=== PATIENT | female | born 1985 | race Caucasian/White ===

== ENCOUNTER 2017-06-14 10:51 | Emergency (ER) | payer MEDICAID ==
[~2017-06-14] VITALS: Ht 157.5 cm; Wt 68.0 kg
[2017-06-14] MEDS ORDERED: IBUPROFEN 600MG TABLET PO ONE (13:15)
[2017-06-14 13:21] VITALS: BP 112/72
== END 2017-06-14 14:42 | disposition home or self-care (01) ==
LOC: ER 11:20
DX: S16.1XXA Strain of muscle, fascia and tendon at neck level, initial encounter (principal); M54.6 Pain in thoracic spine; V89.2XXA Person injured in unspecified motor-vehicle accident, traffic, initial encounter; Y93.89 Activity, other specified; Y92.410 Unspecified street and highway as the place of occurrence of the external cause; Y99.8 Other external cause status
CPT/HCPCS: 72040; 72070; 99284

== ENCOUNTER 2019-03-30 05:04 | Emergency (ER) | payer MEDICAID, OTHER ==
[~2019-03-30] VITALS: Ht 157.5 cm; Wt 87.0 kg
[2019-03-30] MEDS ORDERED: LIDOCAINE HCL/PF 1% 10 MG/ML 5ML VIAL IJ ONE (06:45)
[2019-03-30] MEDS ORDERED: IBUPROFEN 600MG TABLET PO ONE ×2 (06:45→08:45)
[2019-03-30] MEDS ORDERED: TETANUS, DIPHTHERIA, PERTUSSIS VAC/PF 0.5ML (>7YR OLD) IM ONE (06:45)
[2019-03-30] MEDS ORDERED: HYDROCODONE/ACETAMINOPHEN 5/325MG TABLET PO ONE (06:45)
[2019-03-30] MEDS ORDERED: BACITRACIN ZINC OINT UDPKT TOP ONE (06:45)
[2019-03-30 08:47] VITALS: BP 118/74
== END 2019-03-30 09:15 | disposition home or self-care (01) ==
LOC: ER 05:04
DX: S71.151A Open bite, right thigh, initial encounter (principal); W54.0XXA Bitten by dog, initial encounter; S70.311A Abrasion, right thigh, initial encounter; S91.052A Open bite, left ankle, initial encounter; S91.051A Open bite, right ankle, initial encounter; Y93.89 Activity, other specified; Y92.89 Other specified places as the place of occurrence of the external cause; Y99.8 Other external cause status
CPT/HCPCS: 12002; 81025; 90471; 90715; 99284; J3490; Z7610

== ENCOUNTER 2019-04-01 13:42 | Emergency (ER) | payer OTHER | END 2019-04-01 15:03 | disposition left against medical advice (07) | LOC: ER 13:42 | DX: Z53.21 Procedure and treatment not carried out due to patient leaving prior to being seen by health care provider (principal) ==

== ENCOUNTER 2019-04-04 10:14 | Emergency (ER) | payer OTHER ==
[~2019-04-04] VITALS: Ht 157.5 cm; Wt 86.0 kg
[2019-04-04] MEDS ORDERED: KETOROLAC 60MG/2ML VIAL IM ONE (11:00)
[2019-04-04 11:20] VITALS: BP 128/56
== END 2019-04-04 11:23 | disposition home or self-care (01) ==
LOC: ER 10:14
DX: S81.852D Open bite, left lower leg, subsequent encounter (principal); S81.851D Open bite, right lower leg, subsequent encounter; Z98.890 Other specified postprocedural states; W54.0XXD Bitten by dog, subsequent encounter
CPT/HCPCS: 96372; 99283; J1885; Z7610

== ENCOUNTER 2020-02-21 07:44 | Emergency (ER) | payer OTHER ==
[~2020-02-21] VITALS: Ht 157.5 cm; Wt 79.0 kg
[2020-02-21] MEDS ORDERED: LIDOCAINE HCL 1% 20ML VIAL (Pyxis) INJ INFIL ONE (08:15)
[2020-02-21] MEDS ORDERED: METRONIDAZOLE 500MG TABLET PO ONE (08:15)
[2020-02-21] MEDS ORDERED: CEFTRIAXONE SODIUM 250 MG/VIAL IM ONE (08:15)
[2020-02-21 08:48] VITALS: BP 123/81
[2020-02-21] MEDS ORDERED: AZITHROMYCIN 500 MG TABLET PO SCH (09:00)
[2020-02-21 09:43] LABS: CLARITY URINE TURBID (CLEAR); COLOR URINE YELLOW (YELLOW); KETONES URINE NEGATIVE (NEGATIVE); LEUKOCYTE ESTERASE URINE 3+ (NEGATIVE); NITRITE URINE NEGATIVE (NEGATIVE); OCCULT BLOOD URINE 1+ (NEGATIVE); PROTEIN URINE 1+ (NEGATIVE); SPECIFIC GRAVITY URINE 1.027 (1.005-1.030); UROBILINOGEN URINE 0.2 E.U./dL (0.2-1.0)
[2020-02-23 04:16] LABS: NEISSERIA GONORRHOEAE NAA Negative (Negative)
== END 2020-02-21 10:40 | disposition home or self-care (01) ==
LOC: ER 07:44
DX: Z20.2 Contact with and (suspected) exposure to infections with a predominantly sexual mode of transmission (principal); N39.0 Urinary tract infection, site not specified
CPT/HCPCS: 81003; 81025; 87077; 87086; 87491; 87591; 96372; 99283; J0696; J3490

== ENCOUNTER 2020-04-06 05:54 | Emergency (ER) | payer OTHER ==
[~2020-04-06] VITALS: Ht 157.5 cm; Wt 80.0 kg
[2020-04-06] MEDS ORDERED: AZITHROMYCIN 500 MG TABLET PO ONE (06:45)
[2020-04-06] MEDS ORDERED: CEFTRIAXONE SODIUM 250 MG/VIAL IM ONE (06:45)
[2020-04-06 07:11] VITALS: BP 126/80
== END 2020-04-06 07:11 | disposition home or self-care (01) ==
LOC: ER 06:03
DX: A64 Unspecified sexually transmitted disease (principal); Z98.890 Other specified postprocedural states
CPT/HCPCS: 81025; 96372; 99283; J0696

== ENCOUNTER 2020-08-08 02:01 | Emergency (ER) | payer OTHER ==
[~2020-08-08] VITALS: Ht 157.5 cm; Wt 68.0 kg
[2020-08-08 02:47] VITALS: BP 133/83
[2020-08-08] MEDS ORDERED: CEFTRIAXONE SODIUM 500 MG/VIAL IM ONE (03:30)
[2020-08-08] MEDS ORDERED: AZITHROMYCIN 500 MG TABLET PO ONE (03:30)
[2020-08-08 03:43] LABS: CLARITY URINE CLEAR (CLEAR); COLOR URINE YELLOW (YELLOW); KETONES URINE NEGATIVE (NEGATIVE); LEUKOCYTE ESTERASE URINE 2+ (NEGATIVE); NITRITE URINE NEGATIVE (NEGATIVE); OCCULT BLOOD URINE NEGATIVE (NEGATIVE); PH URINE 5.5 (4.5-8.0); PROTEIN URINE NEGATIVE (NEGATIVE); SPECIFIC GRAVITY URINE 1.014 (1.005-1.030); UROBILINOGEN URINE 0.2 E.U./dL (0.2-1.0)
[2020-08-08] MEDS ORDERED: METR-167 MT (04:36)
[2020-08-08] MEDS ORDERED: DIF15 MT (04:36)
[2020-08-11 04:10] LABS: NEISSERIA GONORRHOEAE NAA Negative (Negative)
== END 2020-08-08 04:47 | disposition home or self-care (01) ==
LOC: ER 02:01
DX: A64 Unspecified sexually transmitted disease (principal); N76.0 Acute vaginitis
CPT/HCPCS: 81003; 81025; 87210; 87491; 87591; 96372; 99283; J0696; Z7610

== ENCOUNTER 2020-09-18 03:11 | Emergency (ER) | payer OTHER ==
[~2020-09-18] VITALS: Ht 157.5 cm; Wt 73.0 kg
[~2020-09-18 03:11] MED LIST: DIF15 MT; METR-167 MT
[2020-09-18] MEDS ORDERED: PERM60CR4 TP (04:57)
[2020-09-18 05:26] VITALS: BP 132/75
== END 2020-09-18 05:28 | disposition home or self-care (01) ==
LOC: ER 03:31
DX: B86 Scabies (principal)
CPT/HCPCS: 99282

== ENCOUNTER 2020-10-01 22:21 | Emergency (ER) | payer OTHER ==
[~2020-10-01] VITALS: Ht 157.5 cm; Wt 71.0 kg
[~2020-10-01 22:21] MED LIST changes: +PERM60CR4 TP
[2020-10-01 22:40] VITALS: BP 151/94
[2020-10-01] MEDS ORDERED: ACETAMINOPHEN 325MG TABLET PO STA (23:11)
[2020-10-02 00:09] LABS: CHLORIDE 104 mEq/L (98-107)
[2020-10-02 00:16] LABS: BASOPHILS % 0.4 % (0.0-2.0); EOSINOPHILS % 0.6 % (0.0-5.0); HEMATOCRIT. 35.9 % (36.0-48.0); HEMOGLOBIN. 11.8 g/dL (12.0-16.0); LYMPHOCYTES % 14.8 % (20.0-50.0); MEAN CORPUSCULAR HEMOGLOBIN 27.4 pg (28.0-32.0); MEAN CORPUSCULAR VOLUME 83.1 fL (81.0-99.0); MEAN PLATELET VOLUME 7.4 fl (7.4-10.4); MONOCYTES % 5.7 % (2.0-8.0); NEUTROPHILS % 78.5 % (40.0-76.0); PLATELET 430 x1000/uL (130-400); RED BLOOD CELL COUNT 4.32 mill/uL (4.2-5.4); RED CELL DISTRIBUTION WIDTH 17.9 % (11.6-14.6)
[2020-10-02 00:21] LABS: CLARITY URINE TURBID (CLEAR); COLOR URINE YELLOW (YELLOW); KETONES URINE NEGATIVE (NEGATIVE); LEUKOCYTE ESTERASE URINE 1+ (NEGATIVE); NITRITE URINE NEGATIVE (NEGATIVE); OCCULT BLOOD URINE NEGATIVE (NEGATIVE); PROTEIN URINE NEGATIVE (NEGATIVE); SPECIFIC GRAVITY URINE 1.016 (1.005-1.030); UROBILINOGEN URINE 0.2 E.U./dL (0.2-1.0)
[2020-10-02 00:31] LABS: METHADONE URINE SCREEN NEGATIVE (NEGATIVE); PHENCYCLIDINE URINE SCREEN NEGATIVE (NEGATIVE)
[2020-10-02 00:32] LABS: *BARBITURATES SCREEN URINE NEGATIVE (NEGATIVE); *BENZODIAZEPINES SCREEN URINE NEGATIVE (NEGATIVE); *COCAINE SCREEN URINE NEGATIVE (NEGATIVE); CANNABINOID URINE SCREEN NEGATIVE (NEGATIVE); OPIATES URINE SCREEN NEGATIVE (NEGATIVE)
[2020-10-02 00:40] LABS: *AMPHETAMINES SCREEN URINE PRESUMTIVE POSITIVE (NEGATIVE)
[2020-10-02] MEDS ORDERED: DIPHENHYDRAMINE 25MG CAPSULE PO ONE (00:45)
[2020-10-02] MEDS ORDERED: IBUP-2029 MT (01:15)
[2020-10-02] MEDS ORDERED: NITR-87 MT (01:25)
== END 2020-10-02 01:39 | disposition home or self-care (01) ==
LOC: ER 22:21
DX: N39.0 Urinary tract infection, site not specified (principal); F15.10 Other stimulant abuse, uncomplicated; R03.0 Elevated blood-pressure reading, without diagnosis of hypertension
CPT/HCPCS: 36415; 80053; 80305; 81003; 83690; 85025; 93005; 99284; Q0163

== ENCOUNTER 2020-10-19 15:37 | Emergency (ER) | payer OTHER ==
[~2020-10-19] VITALS: Ht 160 cm; Wt 80.0 kg
[~2020-10-19 15:37] MED LIST changes: +IBUP-2029 MT; +NITR-87 MT
[2020-10-19 15:50] VITALS: BP 141/85
[2020-10-19] MEDS ORDERED: PIP1KIT TP (16:14)
[2020-10-19] MEDS ORDERED: PERM60CR4 TP (16:23)
== END 2020-10-19 16:43 | disposition home or self-care (01) ==
LOC: ER 15:37
DX: B86 Scabies (principal); B85.0 Pediculosis due to Pediculus humanus capitis; Z79.899 Other long term (current) drug therapy; Z85.71 Personal history of Hodgkin lymphoma
CPT/HCPCS: 99281; 99283

== ENCOUNTER 2021-01-11 06:48 | Emergency (ER) | payer OTHER ==
[~2021-01-11] VITALS: Ht 170.2 cm; Wt 100.0 kg
[~2021-01-11 06:48] MED LIST changes: +PIP1KIT TP
[2021-01-11] MEDS ORDERED: LORAZEPAM 1MG TABLET PO ONE (07:30)
[2021-01-11 08:32] LABS: BASOPHILS % 0.5 % (0.0-2.0); EOSINOPHILS % 0.6 % (0.0-5.0); HEMATOCRIT. 36.3 % (36.0-48.0); HEMOGLOBIN. 11.9 g/dL (12.0-16.0); LYMPHOCYTES % 13.3 % (20.0-50.0); MEAN CORPUSCULAR HEMOGLOBIN 28.2 pg (28.0-32.0); MEAN PLATELET VOLUME 7.3 fl (7.4-10.4); MONOCYTES % 4.2 % (2.0-8.0); NEUTROPHILS % 81.4 % (40.0-76.0); PLATELET 473 x1000/uL (130-400); RED BLOOD CELL COUNT 4.23 mill/uL (4.2-5.4); RED CELL DISTRIBUTION WIDTH 15.3 % (11.6-14.6)
[2021-01-11 08:38] LABS: CHLORIDE 105 mEq/L (98-107)
[2021-01-11 08:42] LABS: CLARITY URINE CLEAR (CLEAR); COLOR URINE YELLOW (YELLOW); KETONES URINE TRACE (NEGATIVE); LEUKOCYTE ESTERASE URINE NEGATIVE (NEGATIVE); NITRITE URINE NEGATIVE (NEGATIVE); OCCULT BLOOD URINE NEGATIVE (NEGATIVE); PH URINE 5.5 (4.5-8.0); PROTEIN URINE TRACE (NEGATIVE); SPECIFIC GRAVITY URINE 1.029 (1.005-1.030); UROBILINOGEN URINE 0.2 E.U./dL (0.2-1.0)
[2021-01-11 08:44] LABS: ETHANOL BLOOD < 10 mg/dL
[2021-01-11 08:58] LABS: HCG SCREEN NEGATIVE
[2021-01-11 09:04] LABS: *BARBITURATES SCREEN URINE NEGATIVE (NEGATIVE); *BENZODIAZEPINES SCREEN URINE NEGATIVE (NEGATIVE); *COCAINE SCREEN URINE NEGATIVE (NEGATIVE); METHADONE URINE SCREEN NEGATIVE (NEGATIVE); OPIATES URINE SCREEN NEGATIVE (NEGATIVE)
[2021-01-11 09:05] LABS: CANNABINOID URINE SCREEN NEGATIVE (NEGATIVE); PHENCYCLIDINE URINE SCREEN NEGATIVE (NEGATIVE)
[2021-01-11 09:07] LABS: *AMPHETAMINES SCREEN URINE PRESUMTIVE POSITIVE (NEGATIVE)
[2021-01-11 14:26] VITALS: BP 135/85
== END 2021-01-11 14:32 | disposition home or self-care (01) ==
LOC: ER 06:48
DX: T43.621A Poisoning by amphetamines, accidental (unintentional), initial encounter (principal); G92 Toxic encephalopathy; R00.0 Tachycardia, unspecified; Y92.488 Other paved roadways as the place of occurrence of the external cause
CPT/HCPCS: 36415; 80053; 80305; 80307; 80320; 80329; 81003; 81025; 84703; 85025; 93005; 99285; G0480

== ENCOUNTER 2022-02-26 17:50 | Emergency (ER) | payer OTHER ==
[~2022-02-26] VITALS: Ht 167.6 cm; Wt 109.0 kg
[~2022-02-26 17:50] MED LIST changes: +NALO4SPR BOTHNSTRLS
[2022-02-26 17:55] VITALS: BP 140/83
== END 2022-02-26 23:00 | disposition left against medical advice (07) ==
LOC: ER 18:15
DX: Z53.21 Procedure and treatment not carried out due to patient leaving prior to being seen by health care provider (principal)

== ENCOUNTER 2022-03-03 14:58 | Emergency (ER) | payer MEDICAID, OTHER ==
[~2022-03-03] VITALS: Ht 157.5 cm; Wt 90.0 kg
[2022-03-03] MEDS ORDERED: IBUPROFEN 600MG TABLET PO ONE (16:30)
[2022-03-03 16:38] VITALS: BP 130/82
== END 2022-03-03 17:49 | disposition home or self-care (01) ==
LOC: ER 15:00
DX: S93.492A Sprain of other ligament of left ankle, initial encounter (principal); W22.8XXA Striking against or struck by other objects, initial encounter; Y93.89 Activity, other specified; Y92.89 Other specified places as the place of occurrence of the external cause; Y99.8 Other external cause status; Z79.899 Other long term (current) drug therapy; M25.572 Pain in left ankle and joints of left foot; M79.89 Other specified soft tissue disorders
CPT/HCPCS: 73610; 99283